=== PATIENT | male | born 1985 | race Caucasian/White ===

== ENCOUNTER 2022-05-20 08:46 | Emergency (ER) | payer OTHER ==
[2022-05-20 09:01] VITALS: O2SAT 100
--- NOTE | 2022-05-20 09:01 | ERPHSYRPT ---
- History of Present Illness Time Seen by Provider: 05/20/22 08:56 Source: patient Physician History: Patient is a 36-year-old white male who was doing some yard work yesterday and was laying some black plastic on the ground and cutting it with a knife the knife caught and then released suddenly and he slammed his hand into the brick wall. Complains of pain and swelling over the fifth metacarpal. On the right he denies other injury. Occurred: yesterday Method of Injury: direct blow Quality: throbbing Severity of Pain-Max: moderate Severity of Pain-Current: moderate Extremities Pain Location: hand: right (Dorsum of the right hand especially over the fourth and fifth metatarsals very swollen finger alignment on flexion is good there is no open wound.) Modifying Factors: Improves With: cold therapy, movement Associated Symptoms: none Allergies/Adverse Reactions: No Known Drug Allergies Allergy (Verified 05/20/22 08:53) Home Medications: Losartan Potassium 50 mg [Cozaar 50 MG] 1 tab PO DAILY 05/20/22 [History] - Review of Systems Constitutional: No Fever, No Chills Eyes: No Symptoms Ears, Nose, & Throat: No Symptoms Respiratory: No Cough, No Dyspnea Cardiac: No Chest Pain, No Edema, No Syncope Abdominal/Gastrointestinal: No Abdominal Pain, No Nausea, No Vomiting, No Diarrhea Genitourinary Symptoms: No Dysuria Musculoskeletal: No Back Pain, No Neck Pain Skin: No Rash Neurological: No Dizziness, No Focal Weakness, No Sensory Changes Psychological: No Symptoms Endocrine: No Symptoms All Other Systems: Reviewed and Negative - Nursing Vital Signs Nursing Vital Signs: Initial Vital Signs Temperature 97.7 F 05/20/22 08:54 Pulse Rate 80 05/20/22 08:54 Respiratory Rate 17 05/20/22 08:54 Blood Pressure 158/97 05/20/22 08:54 O2 Sat by Pulse Oximetry 98 05/20/22 08:54 Pain Scale Pain Intensity 7 - Physical Exam General Appearance: mild distress Eyes, Ears, Nose, Throat Exam: normal ENT inspection Neck Exam: non-tender, supple, full range of motion Cardiovascular/Respiratory Exam: chest non-tender, no respiratory distress Back Exam: normal inspection, normal range of motion Shoulder Exam: normal inspection, non-tender, no evidence of injury Elbow/Forearm Exam: normal inspection, non-tender, no evidence of injury Wrist Exam: normal inspection, non-tender, no evidence of injury Hand Exam: bone tenderness (There is bone tenderness over the fifth metacarpal of the right hand there is swelling to the dorsum of the hand there is some decrease movement secondary to stiffness), limited ROM, soft tissue tenderness, stiffness, swelling Neuro/Tendon Exam: normal sensation, normal motor functions Mental Status Exam: alert, oriented x 3, cooperative Skin Exam: normal color, warm, dry SpO2 Interpretation: normal SpO2: 100 O2 Delivery: Room Air - Course Nursing assessment & vital signs reviewed: Yes - Radiology Exams Right Hand X-ray Interpretation: Interpreted by me, Other (Nondisplaced fracture of the proximal fifth metatarsal carpal right hand) Ordered Tests: Active Orders 24 hr Category Date Time Status Splint STAT Care 05/20/22 09:12 Active HAND (MINIMUM 3 VIEWS) Stat Exams 05/20/22 08:55 Taken - Progress Progress: improved Progress Note: 05/20/22 09:14 Referred to Ortho clinic for follow-up - Departure Departure Disposition: Home Clinical Impression: Fracture of fifth metacarpal bone of right hand Condition: Stable Critical Care Time: No Referrals: RO PHIPPS MD [Primary Care Provider] - Follow up/PCP as directed Instructions: Hand Fracture (DC) Prescriptions: Hydrocodone/Acetaminophen [Hydrocodone-Acetamin 5-325 mg] 1 tab PO Q6HPRN PRN 3 Days #12 tablet MDD 4 PRN Reason: Pain
[2022-05-20 09:03] VITALS: BP 158/97; PULSE 80
--- NOTE | 2022-05-20 09:24 | XRAY ---
Exam: 3 view right hand series from 05/20/2022. Comparison: [None.] Indication: 36-year-old male complains of pain and swelling of right hand for one day following a landscaping injury. Findings: AP, oblique, and lateral radiographs of the right hand were obtained. There is an acute appearing oblique fracture through the proximal aspect of the right fifth metacarpal without significant displacement or malalignment. Soft tissue swelling within the metacarpal region of the right hand is evident. No other bone or joint abnormality is seen. Impression: 1. Acute essentially nondisplaced oblique fracture through the proximal right fifth metacarpal. This does not extend into the carpal-fifth metacarpal joint space. Soft tissue swelling in the adjacent region is evident.
[2022-05-20] MEDS ORDERED: NORCO 5/325 MG PO ONE (11:13)
[2022-05-20] MEDS ORDERED: NORCO 5/325 MG ONE (11:16)
== END 2022-05-20 11:25 | disposition home or self-care (01) ==
LOC: ED 08:46
DX: S62.356A Nondisplaced fracture of shaft of fifth metacarpal bone, right hand, initial encounter for closed fracture (principal); W22.01XA Walked into wall, initial encounter; Y93.H2 Activity, gardening and landscaping; Y92.007 Garden or yard of unspecified non-institutional (private) residence as the place of occurrence of the external cause; M79.641 Pain in right hand; Z79.891 Long term (current) use of opiate analgesic
CPT/HCPCS: 29125; 73130; 99283; A9270-GY

== ENCOUNTER 2022-06-26 01:59 | Emergency (ER) | payer OTHER ==
--- NOTE | 2022-06-26 02:21 | ERPHSYRPT ---
- History of Present Illness Time Seen by Provider: 06/26/22 02:12 Source: patient Exam Limitations: no limitations Physician History: 36-year-old presented in the ER with chief complaint of right shoulder pain after he fell off of a 4 feet high scaffolding and hit his right shoulder against the wall with arms stretched up and platform of scaffolding, felt a popping sound. Patient thinks he overstretched his shoulder. This happened yesterday afternoon, was able to move with and has taken Tylenol almost 6 hours ago and woke up with excruciating pain in the right shoulder, reproducible with minimal movements and partial relief with holding in a certain position. No numbness or tingling/weakness of right upper extremity/hand. Occurred: yesterday Method of Injury: fell Quality: sharpness Severity of Pain-Max: severe Severity of Pain-Current: severe Extremities Pain Location: shoulder: right Modifying Factors: Improves With: immobilization. Worsens With: movement Associated Symptoms: none Allergies/Adverse Reactions: No Known Drug Allergies Allergy (Verified 06/26/22 02:08) Home Medications: Losartan Potassium 50 mg [Cozaar 50 MG] 1 tab PO DAILY 05/20/22 [History] Allopurinol 100 mg [Zyloprim 100 mg] 100 mg PO DAILY 06/25/22 [History] Cetirizine HCl [Zyrtec] 10 mg PO DAILY 06/25/22 [History] Iron 27 mg PO DAILY 06/25/22 [History] Mecobalamin [B12 Active] 1,000 mg PO DAILY 06/25/22 [History] Hx Tetanus, Diphtheria Vaccination/Date Given: Yes Hx Influenza Vaccination/Date Given: No Hx Pneumococcal Vaccination/Date Given: No Travel Risk - Vaccine Status Have you recieved a Covid-19 vaccination: No - Review of Systems Constitutional: No Symptoms Eyes: No Symptoms Respiratory: No Symptoms Cardiac: No Symptoms Abdominal/Gastrointestinal: No Symptoms Musculoskeletal: Fall, Injury, Joint Pain, Joint Swelling Skin: No Symptoms Neurological: No Symptoms Psychological: No Symptoms Hematologic/Lymphatic: No Symptoms Immunological/Allergic: No Symptoms - Past Medical History Pertinent Past Medical History: Yes ENT History: Other Cardiac History: Hypertension History: Renal Disease Other Medical History: deviated septum - Past Surgical History Past Surgical History: Yes Genitourinary: Other Other Surgical History: Sinus surgery, kidney biopsy - Social History Smoking Status: Former smoker Exposure to second hand smoke: No Drug Use: none Patient Lives Alone: No - Nursing Vital Signs Nursing Vital Signs: Initial Vital Signs Temperature 99.1 F 06/26/22 02:09 Pulse Rate 92 H 06/26/22 02:09 Respiratory Rate 14 06/26/22 02:09 Blood Pressure 147/88 06/26/22 02:09 O2 Sat by Pulse Oximetry 99 06/26/22 02:09 Pain Scale Pain Intensity 8 - Physical Exam General Appearance: no apparent distress, alert Eyes, Ears, Nose, Throat Exam: normal ENT inspection Neck Exam: normal inspection, full range of motion Cardiovascular/Respiratory Exam: normal breath sounds, regular rate/rhythm Back Exam: normal inspection, normal range of motion Shoulder Exam: normal inspection, limited ROM (Right shoulder extensively with limited range of motion.), pain, soft tissue tenderness, swelling Elbow/Forearm Exam: normal inspection, non-tender, no evidence of injury, normal ROM Wrist Exam: normal inspection, non-tender, no evidence of injury, normal ROM Hand Exam: normal inspection, non-tender, no evidence of injury, normal ROM Neuro/Tendon Exam: normal sensation Mental Status Exam: alert, oriented x 3, cooperative Skin Exam: normal color SpO2 Interpretation: normal SpO2: 96 O2 Delivery: Room Air Ordered Tests: Medication Summary Discontinued Medications Generic Name Dose Route Start Last Admin Trade Name Freq PRN Reason Stop Dose Admin Hydrocodone Bitart/Acetaminophen 2 tablet 06/26/22 02:28 06/26/22 02:38 Hydrocodone/Acetamin 10-325 Mg Tablet PO 07/01/22 02:27 2 tablet Q4H PRN PRN Administration PAIN Ketorolac Tromethamine 30 mg 06/26/22 02:36 06/26/22 02:38 Ketorolac Tromethamine 30 Mg/Ml Inj IM 06/26/22 02:37 30 mg STAT ONE Administration Ketorolac Tromethamine Confirm 06/26/22 02:37 Ketorolac Tromethamine 30 Mg/Ml Inj Administered 06/26/22 02:38 Dose 30 mg .ROUTE .STK-MED ONE - Progress Progress: pain not gone completely Progress Note: 06/26/22 02:21 Given Toradol for symptomatic relief. X-rays negative for fracture dislocation reviewed by me, official report is pending. I believe patient has a contusion/sprain and will place him in sling, NSAIDs, ice and outpatient orthopedic surgery follow-up. Counseled pt/family regarding: diagnosis, need for follow-up, rad results - Departure Departure Disposition: Home Clinical Impression: Sprain of shoulder, right Condition: Stable Critical Care Time: No Referrals: RO PHIPPS MD [Primary Care Provider] - Follow Up with PCP/3 days ELENITA - UZAIR LYONS NP [NON-STAFF PHY W/O PRIVILEGES] - Follow up/PCP as directed (In the morning for reevaluation) Instructions: Shoulder Sprain (DC) Additional Instructions: Take Tylenol/ibuprofen as needed for pain. Follow-up with orthopedics for reevaluation in the morning. Keep your arm in the sling and avoid exertional activities. Return to ER for worsening pain, difficulty movements, numbness tingling or weakness of right upper extremity.
[2022-06-26] MEDS ORDERED: HYDROCODONE-ACETAMIN 10-325 MG PO PRN (02:28)
[2022-06-26] MEDS ORDERED: TORAdol 30 mg Injection IM ONE (02:36)
[2022-06-26] MEDS ORDERED: TORAdol 30 mg Injection ONE (02:37)
[2022-06-26 02:55] VITALS: BP 111/102; PULSE 90
--- NOTE | 2022-06-26 08:49 | XRAY ---
Indication: Pain following fall. Comparison: None 3 view right shoulder demonstrates nondisplaced fracture lateral humeral head. No other bony, articular, or soft tissue abnormalities. Comment: No preliminary interpretation/electronic notes by the interpreting ER clinician. Telephone report was given to Dr. Shannon at 0845 hrs. on June 26, 2022.
[2022-06-28 15:23] VITALS: O2SAT 96
== END 2022-06-26 03:02 | disposition home or self-care (01) ==
LOC: ED 01:59
DX: S43.401A Unspecified sprain of right shoulder joint, initial encounter (principal); W12.XXXA Fall on and from scaffolding, initial encounter; M25.511 Pain in right shoulder; I10 Essential (primary) hypertension; Z79.899 Other long term (current) drug therapy; Z28.310 Unvaccinated for COVID-19
CPT/HCPCS: 73030; 96372; 99283; J1885; A9270-GY